=== PATIENT | male | born 1960 | race African-American/Black ===

== ENCOUNTER 2017-04-14 10:13 | Observation (INO) | payer OTHER, SELFPAY ==
[2017-04-14 11:38] LABS: #Basophils 0.1 thou/uL (0.0-0.2); #Eosinphils 0.3 thou/uL (0.0-0.7); #Lymphocytes 2.3 thou/uL (1.20-3.40); #Monocytes 0.4 thou/uL (0.11-0.59); #Neutrophils 3.1 thou/uL (1.40-6.50); %Basophils 1.3 % (0.0-1.0); %Eosinophils 4.2 % (0.0-10.0); %Lymphocytes 37.6 % (21.0-51.0); %Monocytes 6.2 % (0.0-10.0); Hematocrit 45.1 % (42.0-52.0); Mean Platelet Volume 7.6 fL (7.4-10.4); White Blood Cell (WBC) Count 6.2 thou/uL (4.8-10.8)
[2017-04-14] MEDS ORDERED: Nitroglycerin 2% Ointment 1 INCH/1 GM Packet ONE (11:44)
[2017-04-14 12:01] LABS: ALT (SGPT) 56 U/L (8-55); AST (SGOT) 41 U/L (5-34); Alkaline Phosphatase 97 U/L (40-150); Anion Gap 15 mmol/L (10-20); BUN (Urea Nitrogen) 11 mg/dL (8.4-25.7); Bilirubin, Total 0.7 mg/dL (0.2-1.2); Calc. Creatinine Clearance 0 mL/min (70-130); Calcium 9.3 mg/dL (7.8-10.44); Carbon Dioxide 22 mmol/L (22-29); Chloride 108 mmol/L (98-107); Estimated GFR-MDRD 87; Globulin 3.6 g/dL (2.4-3.5); Protein, Total 7.7 g/dL (6.0-8.3)
--- NOTE | 2017-04-14 12:02 | RAD ---
UPRIGHT PORTABLE CHEST 1 VIEW: Date: HISTORY: 56-year-old male with hypertension and nausea. COMPARISON: 05/18/10. FINDINGS: Monitor leads overlie the chest. Heart size is within normal limits. Lungs are clear. IMPRESSION: Stable appearing chest. No acute intrathoracic disease. POS: [facility]
[2017-04-14] MEDS ORDERED: Ondansetron HCl/PF 4 MG/2 ML Vial IVP PRN (12:47)
[2017-04-14] MEDS ORDERED: HumaLOG 300 UNITS/3 ML VIAL SC PRN (12:47)
[2017-04-14] MEDS ORDERED: Acetaminophen 325 MG TAB PO PRN ×2 (12:47→16:07)
[2017-04-14] MEDS ORDERED: Zolpidem Tartrate 5 MG TAB PO PRN (12:47)
[2017-04-14] MEDS ORDERED: Dextrose 5% in Water 1,000 ML IV PRN (12:47)
[2017-04-14] MEDS ORDERED: HYDROcodone/Acetaminophen 7.5/325 mg Tablet PO PRN (12:47)
[2017-04-14] MEDS ORDERED: Dextrose 50% Abboject 50 ML SYRINGE SLOW IVP PRN (12:47)
[2017-04-14] MEDS ORDERED: Labetalol HCl 100 MG/20 ML VIAL SLOW IVP PRN (12:48)
--- NOTE | 2017-04-14 13:33 | HP ---
PRIMARY CARE PROVIDER: Isidro Metcalf M.D. The patient referred to the [facility] by [facility] for possibl e chest pain variant. The patient became lightheaded this morning, nauseated with no emesis. He di d have sweat. He had no pressure, chest pain, no tightness in his chest. No shortness of breath, n o nausea. PAST MEDICAL HISTORY: Pertinent for hypertension, diabetes mellitus type 2, and dyslipidemia for 4- 5 years. MEDICATIONS: Currently on lisinopril 40 mg a day, metformin 500 mg a day, metoprolol 25 mg twice a day, Lipitor 40 mg a day, hydralazine 50 mg a day, and aspirin 325 mg a day. ALLERGIES: PENICILLIN. PAST SURGICAL HISTORY: He had some form of benign tumor removed from his left neck years ago. FAMILY HISTORY: One brother younger than he has of an enlarged heart and hypertension. His fa ther , he had diabetes. His mother has coronary artery disease and is alive. SOCIAL HISTORY: , at bedside. Surrogate decision maker. FULL CODE status. No tobacco , no alcohol or illicit drugs. REVIEW OF SYSTEMS: GENERAL: In general, in addition to his lightheadedness this morning, he has yan d some pressure in his hand. All of his symptoms have resolved at this time. He has had no fever o r chills. He did have sweat this morning. EYES: No double vision, blurred vision, flashing lights . EAR, NOSE, AND THROAT: No ear pain or drainage. No nasal bleeding. No trouble swallowing, no p ain in his mouth. CARDIAC: No chest pain, orthopnea or paroxysmal nocturnal dyspnea. RESPIRATIONS : No cough, wheezing or asthma. GASTROINTESTINAL: No nausea, vomiting, abdominal pain, diarrhea, constipation or melena. GENITOURINARY: No hematuria, dysuria or nocturia. NEUROLOGICAL: No strok es, seizures or focal weakness. He was in the hospital with what was considered a possible TIA year and a half ago. There were no positive findings. PSYCHIATRIC: No anxiety or depression. SKIN: No bruises, bleeding or rash. HEME/LYMPH: No tender or swollen lymph nodes in axilla, inguinal or cervical area. PHYSICAL EXAMINATION: VITAL SIGNS: In the emergency room, he was found to have elevated blood pressure ranging from 189-2 05 systolic and 79-107 diastolic, pulse was 60-65, respirations 18, and room air sat 97%. HEENT: Examination of his head, eyes, ears, nose, and throat reveal pupils equal and round. Extrao cular movements are intact. Sclerae white. Tympanic membranes clear. Nose clear. Oral mucous mem branes are wet. Dental hygiene is good. NECK: Supple, without jugular venous distention, adenopathy or thyromegaly. CHEST: Clear to auscultation and percussion. HEART: Had a regular rate and rhythm. First and second heart sounds are clear. There are no appre ciated murmurs or gallops. ABDOMEN: Soft, bowel sounds are normal. There is no hepatosplenomegaly, no mass, no rebound, no br uits. EXTREMITIES: Reveal no cyanosis, clubbing or edema. SKIN: Warm and dry without bruises or rash. HEME/LYMPH: Reveal no tender or swollen lymph nodes in axilla, inguinal or cervical area. Deep ten don reflexes were symmetric. Moved all extremities. Cranial nerves II-XII are intact. IMAGIN. EKG, regular sinus rhythm with diffuse ST abnormality, nonspecific, reviewed by me. 2. Chest x-ray, no cardiomegaly, CHF or infiltrate, reviewed by me. LABORATORY DATA: CBC is normal. White count 6.2, hemoglobin 14.2, platelet count and 201,000. Com p metabolic profile was normal except for a chloride minimally elevated at 108, blood sugar 181, AST 41, ALT 56. First set of cardiac enzymes are normal. ADMITTING DIAGNOSES: 1. Chest pain variant with abnormal electrocardiogram. 2. Hypertension, uncontrolled. 3. Diabetes mellitus type 2. 4. Dyslipidemia. PLAN: 1. Aspirin. Increase metoprolol from 25 to 50 b.i.d. 2. Increase Apresoline from 50 a day to 50 t.i.d. 3. Continue lisinopril 40 a day. Continue statins. Repeat cardiac enzymes x2. If normal, then ex ercise Cardiolite stress test.
[2017-04-14 15:37] LABS: Troponin I 0.015 ng/mL (< 0.028)
[2017-04-14 16:01] VITALS: BMI 38.9
[2017-04-14] MEDS ORDERED: Aspirin 325 mg Enteric Coated Tablet PO SCH (16:15)
[2017-04-14 18:49] LABS: Troponin I 0.011 ng/mL (< 0.028)
[2017-04-14] MEDS: Metoprolol Tartrate 50 MG TAB PO SCH (20:12)
[2017-04-14] MEDS ORDERED: Metoprolol Tartrate 25 MG TAB PO SCH (21:00)
[2017-04-14] MEDS ORDERED: Atorvastatin Calcium 40 MG TAB PO SCH (21:00)
[2017-04-15 05:06] LABS: Anion Gap 11 mmol/L (10-20); BUN (Urea Nitrogen) 12 mg/dL (8.4-25.7); Calc. Creatinine Clearance 183 mL/min (70-130); Calcium 8.9 mg/dL (7.8-10.44); Carbon Dioxide 25 mmol/L (22-29); Chloride 107 mmol/L (98-107); Estimated GFR-MDRD Greater than 90
[2017-04-15] MEDS ORDERED: Aspirin 325 MG TAB PO SCH (09:00)
[2017-04-15] MEDS ORDERED: Lisinopril 20 MG TAB PO SCH (09:00)
[2017-04-15] MEDS: Metoprolol Tartrate 50 MG TAB PO SCH (15:08)
[2017-04-15 15:23] VITALS: TEMP 97.6
--- NOTE | 2017-04-15 15:47 | NM ---
CARDIAC SPECT 04/15/17 HISTORY: 56-year-old male with chest pain, hypertension, diabetes, hyperlipidemia. TECHNIQUE: A myocardial perfusion scan was performed using the single isotope one day protocol with technetium 99m Sestamibi. 10 millicuries was injected intravenously for the rest exam followed by 27 millicurie s for the stress study. Pharmacologic stress with Lexiscan was monitored and interpreted by Dr. Jose Eduardo stevens. FINDINGS: Homogeneous tracer distribution is seen in the myocardial segments on stress and rest images without fixed or reversible defects. GATED SPECT LVEF: 63%. WALL MOTION EXAM: Normal. IMPRESSION: Normal myocardial perfusion scan. POS: [facility]
[2017-04-15 15:59] VITALS: BP 156/70
--- NOTE | 2017-04-15 17:27 | DIS ---
DATE OF ADMISSION: 04/14/2017 DATE OF DISCHARGE: 04/15/2017 DISPOSITION: Discharged home. [facility] FINAL DIAGNOSES: 1. Atypical chest pain, noncardiac. 2. Diabetes mellitus type 2, uncontrolled. 3. Hypertension, uncontrolled. 4. Dyslipidemia. DISCHARGE MEDICATIONS: Lisinopril 40 mg a day, Lipitor 40 mg a day, aspirin 325 mg a day, metformin 500 mg a day, hydralazine 50 mg 3 times a day, and metoprolol 50 mg twice a day. ALLERGIES: Allergic to PENICILLIN. PENDING AT THE TIME OF DISCHARGE: Nothing. CODE STATUS: FULL. HOSPITAL COURSE: The patient admitted to the emergency room with vague symptoms, a substantially ab normal electrocardiogram. His laboratory; normal CBC, comp metabolic profile revealing only blood s ugar of 181, follow up 200, 159, and 149. AST 41, ALT 56, bilirubin 0.7. Cardiac enzymes normal x3 . EKG showed regular sinus rhythm with diffuse nonspecific ST-T abnormality. Chest x-ray was unrev ealing. Nuclear medicine cardiac stress test was done, which revealed homogeneous uptake of tracer. No evidence of fixed or reversible defect, 63% LVEF by calculation. Today, the patient's blood pr essure is 156/70, pulse 71, respirations 18. He is alert and oriented. Cardiorespiratory exam is u nremarkable. He feels well. He is being discharged for followup at [facility] in 7 days. CONSULTATIONS: None. PROCEDURES: None.
== END 2017-04-15 16:41 | disposition home or self-care (01) ==
LOC: ERS 10:13 → 2SW 12:36
PROVIDERS: ADMIT Internal Medicine; ATTEND Internal Medicine
DX: R07.89 Other chest pain (principal); E11.65 Type 2 diabetes mellitus with hyperglycemia; I10 Essential (primary) hypertension; E78.5 Hyperlipidemia, unspecified; Z79.82 Long term (current) use of aspirin; Z79.84 Long term (current) use of oral hypoglycemic drugs; Z79.899 Other long term (current) drug therapy; Z88.0 Allergy status to penicillin
CPT/HCPCS: 36415; 36416; 71010; 78452; 80048; 80053; 82553; 84484; 85025; 93005; 93017; 94760; A9500; G0378; J0153

== ENCOUNTER 2017-04-22 21:31 | Emergency (ER) | payer SELFPAY ==
--- NOTE | 2017-04-22 22:21 | RAD ---
PORTABLE AP CHEST X-RAY: 04/22/17 HISTORY: Chest pain, dizziness, nausea. COMPARISON: 04/14/17. The cardiac silhouette and pulmonary vasculature are within normal limits. The lungs remain clear. T here has been no interval change from prior study. IMPRESSION: No acute cardiopulmonary process. POS: [facility]
[2017-04-22 22:48] LABS: #Basophils 0.1 thou/uL (0.0-0.2); #Eosinphils 0.3 thou/uL (0.0-0.7); #Lymphocytes 2.9 thou/uL (1.20-3.40); #Monocytes 0.5 thou/uL (0.11-0.59); %Basophils 0.6 % (0.0-1.0); %Eosinophils 3.9 % (0.0-10.0); %Lymphocytes 32.8 % (21.0-51.0); %Monocytes 5.8 % (0.0-10.0); Hematocrit 41.7 % (42.0-52.0); Mean Platelet Volume 7.2 fL (7.4-10.4); Red Blood Cell (RBC) Count 4.63 mill/uL (4.70-6.10); White Blood Cell (WBC) Count 8.8 thou/uL (4.8-10.8)
[2017-04-22] MEDS ORDERED: Ondansetron HCl/PF 4 MG/2 ML Vial ONE (22:59)
[2017-04-22] MEDS ORDERED: Aspirin 325 MG TAB ONE (22:59)
[2017-04-22 23:13] LABS: ALT (SGPT) 32 U/L (8-55); AST (SGOT) 24 U/L (5-34); Alkaline Phosphatase 85 U/L (40-150); Anion Gap 14 mmol/L (10-20); BUN (Urea Nitrogen) 12 mg/dL (8.4-25.7); Bilirubin, Total 0.5 mg/dL (0.2-1.2); CK (CPK) 611 U/L (30-200); Calc. Creatinine Clearance 0 mL/min (70-130); Calcium 8.8 mg/dL (7.8-10.44); Carbon Dioxide 21 mmol/L (22-29); Chloride 107 mmol/L (98-107); Estimated GFR-MDRD Greater than 90; Globulin 3.3 g/dL (2.4-3.5); Protein, Total 7.2 g/dL (6.0-8.3)
[2017-04-22 23:18] LABS: Troponin I Less than 0.010 ng/mL (< 0.028)
[2017-04-23] MEDS ORDERED: cloNIDine HCl 0.1 MG TAB ONE ×2 (00:27→00:50)
[2017-04-23] MEDS ORDERED: Nitroglycerin 0.4 MG TAB (25 Tab Bottle) ONE (00:27)
[2017-04-23] MEDS ORDERED: Metoclopramide HCl 10 MG/2 ML VIAL ONE (00:31)
[2017-04-23] MEDS ORDERED: Ketorolac Tromethamine 30 MG/ML VIAL ONE (00:31)
== END 2017-04-23 02:58 | disposition home or self-care (01) ==
LOC: ERS 21:31
DX: E86.0 Dehydration (principal); E11.9 Type 2 diabetes mellitus without complications; E78.5 Hyperlipidemia, unspecified; I10 Essential (primary) hypertension; J45.909 Unspecified asthma, uncomplicated; Z79.82 Long term (current) use of aspirin; Z79.84 Long term (current) use of oral hypoglycemic drugs; Z79.899 Other long term (current) drug therapy
CPT/HCPCS: 71010; 80053; 82553; 84484; 85025; 93005; 96361; 96374; 96375; J0360; J1885; J2405; J2765

== ENCOUNTER 2017-05-04 01:42 | Observation (INO) | payer SELFPAY ==
[2017-05-04] MEDS ORDERED: Aspirin 325 MG TAB ONE (01:49)
[2017-05-04 02:37] LABS: #Basophils 0.1 thou/uL (0.0-0.2); #Eosinphils 0.4 thou/uL (0.0-0.7); #Lymphocytes 3.5 thou/uL (1.20-3.40); #Monocytes 0.6 thou/uL (0.11-0.59); #Neutrophils 4.1 thou/uL (1.40-6.50); %Basophils 1.4 % (0.0-1.0); %Eosinophils 4.4 % (0.0-10.0); %Lymphocytes 40.2 % (21.0-51.0); %Monocytes 7.4 % (0.0-10.0); Hematocrit 42.5 % (42.0-52.0); Mean Platelet Volume 7.5 fL (7.4-10.4); Red Blood Cell (RBC) Count 4.71 mill/uL (4.70-6.10); White Blood Cell (WBC) Count 8.7 thou/uL (4.8-10.8)
[2017-05-04 02:56] LABS: ALT (SGPT) 37 U/L (8-55); AST (SGOT) 25 U/L (5-34); Alkaline Phosphatase 96 U/L (40-150); Anion Gap 11 mmol/L (10-20); BUN (Urea Nitrogen) 11 mg/dL (8.4-25.7); Bilirubin, Total 0.5 mg/dL (0.2-1.2); CK (CPK) 455 U/L (30-200); Calc. Creatinine Clearance 0 mL/min (70-130); Calcium 9.3 mg/dL (7.8-10.44); Carbon Dioxide 25 mmol/L (22-29); Chloride 107 mmol/L (98-107); Estimated GFR-MDRD Greater than 90; Globulin 3.3 g/dL (2.4-3.5); Lipase 41 U/L (8-78); Protein, Total 7.2 g/dL (6.0-8.3)
[2017-05-04 03:00] LABS: Troponin I 0.016 ng/mL (< 0.028)
[2017-05-04] MEDS ORDERED: Nitroglycerin 2% Ointment 1 INCH/1 GM Packet ONE (03:24)
[2017-05-04] MEDS ORDERED: Ondansetron ODT 4 MG TAB SL PRN (05:48)
[2017-05-04] MEDS ORDERED: Ondansetron HCl/PF 4 MG/2 ML Vial IVP PRN ×2 (05:48→08:00)
[2017-05-04 05:53] LABS: Troponin I 0.026 ng/mL (< 0.028)
[2017-05-04] MEDS ORDERED: Sodium Chloride 0.9% 1,000 ML IV SCH (06:00)
[2017-05-04] MEDS ORDERED: Nitroglycerin 2% Ointment 1 INCH/1 GM Packet TOP SCH ×2 (06:00→09:00)
[2017-05-04 06:20] VITALS: BMI 38.3
[2017-05-04] MEDS ORDERED: Zolpidem Tartrate 5 MG TAB PO PRN (08:00)
--- NOTE | 2017-05-04 08:31 | HP ---
PRIMARY CARE PROVIDER: Isidro Metcalf M.D. Referred to the [facility] Service for high blood pressure and chest pain. HISTORY OF PRESENT ILLNESS: The patient was evaluated for chest pain with normal stress test on , presents with his blood pressure being up. He had a left throbbing chest pain that lasted a couple of seconds. He awoke with it and states his blood pressure goes up and down. He had no sh ortness of breath, no sweats, no nausea. He presented at the hospital. I discussed with him the is danya of the normal stress test, atypical chest pain and his blood pressure, it demonstrated poor insi ght into the problem and what was appropriate for outpatient and inpatient work. PAST MEDICAL HISTORY: Hypertension, diabetes mellitus type 2, dyslipidemia, normal stress test 03/27. MEDICATIONS: Metformin 500 mg a day, lisinopril 40 mg a day, aspirin 325 mg a day, hydralazine 50 m g 3 times a day, metoprolol either 50 or 100 mg twice a day, it is not sure, Lipitor 40 mg a day. ALLERGIES: Allergic to PENICILLINS. PAST SURGICAL HISTORY: Benign tumor removed from his left neck years ago. FAMILY HISTORY: One younger brother has of an enlarged heart and hypertension. Father is dece ased, had diabetes. Mother had coronary artery disease, alive. SOCIAL HISTORY: , FULL CODE. No tobacco, no alcohol or illicit drugs. REVIEW OF SYSTEMS: GENERAL: He has a headache when his blood pressure goes up. No dizziness and n o fainting. EYES: No double vision, blurred vision, flashing lights. EAR, NOSE, AND THROAT: No e ar pain or drainage. No nasal bleeding. No trouble swallowing. CARDIAC: See present illness. No orthopnea or paroxysmal nocturnal dyspnea. RESPIRATORY: He has occasional cough. No shortness of breath or wheezing. GASTROINTESTINAL: No nausea, vomiting, diarrhea or constipation. GENITOURINA RY: No hematuria, dysuria or nocturia. MUSCULOSKELETAL: No pain or swelling in his arms or legs. NEUROLOGIC: He says he had a mini stroke in the past. No residual. PSYCHIATRIC: No anxiety or d epression. SKIN: No bruising, bleeding or rash. HEME/LYMPH: No tender or swollen lymph nodes. PHYSICAL EXAMINATION: VITAL SIGNS: Blood pressure when I examined him 124/59, pulse 67, and respirations 18. HEENT: Examination of his head, eyes, ears, nose, and throat reveal pupils equal, round, and reacti ve to light. Extraocular movements are intact. Sclerae white. Tympanic membranes clear. Nose jaison ar. Oral mucous membranes are wet. Dental hygiene is good. NECK: Supple, without jugular venous distention, adenopathy or thyromegaly. CHEST: Clear to auscultation and percussion. HEART: Had regular rate and rhythm. First and second heart sounds are clear. There are no murmurs or gallops. ABDOMEN: Soft, bowel sounds are normal. There is no hepatosplenomegaly, no mass, no rebound, no br uits. EXTREMITIES: Reveal no cyanosis, clubbing or edema. SKIN: Warm and dry without bruises or rash. HEME/LYMPH: No tender or swollen lymph nodes in the axilla, inguinal or cervical area. PULSES: Carotid, radial, femoral, and dorsalis pedis pulses intact. NEUROLOGICAL: Cranial nerves II-XII are intact. Deep tendon reflexes symmetric. IMAGING: Regular sinus rhythm, no acute ST-T abnormality. Chest x-ray, no cardiomegaly, CHF or inf iltrate, reviewed by me. LABORATORY DATA: Comp metabolic profile, CK elevated at 455. Cardiac enzymes were normal x2. CBC is normal. ADMITTING DIAGNOSES: 1. Atypical chest pain. 2. Hypertension, currently controlled. 3. Diabetes mellitus type. 4. Dyslipidemia. We will repeat a third troponin. We will monitor his blood pressure during the d ay with no p.r.n. medicines. Discuss again with him later.
--- NOTE | 2017-05-04 08:33 | RAD ---
RADIOGRAPH CHEST 1 VIEW: HISTORY: 56-year-old male with acute chest pain and subjective hypertension. FINDINGS: There are no air space densities, pulmonary edema, pneumothorax, or cardiomegaly. The lateral costo phrenic angles are sharp. IMPRESSION: No acute cardiopulmonary findings. kasey [] POS: [facility]
[2017-05-04 08:44] LABS: Troponin I Less than 0.010 ng/mL (< 0.028)
[2017-05-04] MEDS ORDERED: Aspirin 325 mg Enteric Coated Tablet PO SCH ×2 (09:00)
[2017-05-04] MEDS ORDERED: Aspirin 325 MG TAB PO SCH (09:00)
[2017-05-04] MEDS ORDERED: LISINOPRIL PO SCH (09:00)
[2017-05-04] MEDS ORDERED: Lisinopril 20 MG TAB PO SCH (09:00)
[2017-05-04] MEDS ORDERED: Metoprolol Tartrate 100 MG TAB PO SCH (09:00)
[2017-05-04] MEDS: Acetaminophen 325 MG TAB PO PRN ×2 (09:48→14:05)
[2017-05-04 16:40] VITALS: BP 163/79; TEMP 97.9
--- NOTE | 2017-05-04 18:22 | DIS ---
DATE OF ADMISSION: 05/04/2017 DATE OF DISCHARGE: 05/04/2017 PRIMARY CARE PROVIDER: Isidro Metcalf MD DISCHARGE DISPOSITION: To home. FINAL DIAGNOSES: 1. Atypical chest pain lasting seconds. 2. Hypertension. 3. Diabetes mellitus type 2. 4. Dyslipidemia. DISCHARGE MEDICATIONS: Same as his home medicines, lisinopril 40 mg a day, metformin 500 mg a day, aspirin 325 mg a day, Apresoline 50 mg 3 times a day, metoprolol 100 mg twice a day. ALLERGIES: To PENICILLIN. PENDING AT TIME OF DISCHARGE: Nothing. HOSPITAL COURSE: Patient was admitted to the Emergency Department with a throbbing 2-second chest p ain, came to the ER, his blood pressure was noted to be up, but came down rapidly. EKG was unreveal ing. LABORATORY: CBC normal. Comp metabolic profile normal except CK of 455. Cardiac enzymes normal x2 . Blood sugar 122. Patient was monitored during the day. Blood pressure readings were 124/59, 174 /83, 168/76, 163/79. The situation was discussed with him. He is comfortable with being discharged . He needs to follow up with his primary care doctor in 1 week. I had a long discussion with this gentleman about vague chest pains. He had a stress test on 04/15/2017 that was normal for vague sym ptomatology. The patient shows a lack of insight into the situation. CONSULTATIONS: None. PROCEDURES: None.
[2017-05-04] MEDS ORDERED: Atorvastatin Calcium 40 MG TAB PO SCH (21:00)
[2017-05-05] MEDS ORDERED: FLU VACC QS2017-18 36 mo. & older 0.5 ML SYRINGE IM ONE (09:00)
== END 2017-05-04 17:33 | disposition home or self-care (01) ==
LOC: ERS 01:42 → 2SE 03:12
PROVIDERS: ADMIT Internal Medicine; ATTEND Internal Medicine
DX: R07.89 Other chest pain (principal); I10 Essential (primary) hypertension; E11.9 Type 2 diabetes mellitus without complications; E78.5 Hyperlipidemia, unspecified; Z79.84 Long term (current) use of oral hypoglycemic drugs; Z79.82 Long term (current) use of aspirin; Z79.899 Other long term (current) drug therapy; Z88.0 Allergy status to penicillin; Z98.890 Other specified postprocedural states; Z83.3 Family history of diabetes mellitus; Z82.49 Family history of ischemic heart disease and other diseases of the circulatory system
CPT/HCPCS: 36415; 71010; 80053; 82550; 82553; 83690; 83880; 84484; 85025; 93005; 96361; 96374; G0378; J0360

== ENCOUNTER 2017-08-18 04:30 | Emergency (ER) | payer SELFPAY ==
[2017-08-18] MEDS ORDERED: Lisinopril 10 MG TAB ONE (05:03)
[2017-08-18] MEDS ORDERED: hydrALAZINE 25 MG TAB ONE (05:03)
[2017-08-18] MEDS ORDERED: cloNIDine 0.1 MG TAB ONE (05:03)
[2017-08-18] MEDS ORDERED: Metoprolol Tartrate 50 MG TAB ONE (05:03)
[2017-08-18 05:04] LABS: #Basophils 0.1 thou/uL (0.0-0.2); #Eosinphils 0.3 thou/uL (0.0-0.7); #Lymphocytes 4.2 thou/uL (1.20-3.40); #Monocytes 0.6 thou/uL (0.11-0.59); #Neutrophils 4.3 thou/uL (1.40-6.50); %Eosinophils 3.3 % (0.0-10.0); %Lymphocytes 44.1 % (21.0-51.0); %Monocytes 6.3 % (0.0-10.0); %Neutrophils 45.3 % (42.0-75.0); Hemoglobin 14.4 g/dL (14.0-18.0); Mean Corpuscular HGB CONC 32.7 g/dL (32.0-36.0); Mean Corpuscular Hemoglobin 28.7 pg (27.0-31.0); Mean Corpuscular Volume 87.7 fl (80.0-94.0); Mean Platelet Volume 7.7 fL (7.4-10.4); Platelet Count 209 thou/uL (130-400); RBC Distribution Width 12.6 % (11.5-14.5); Red Blood Cell (RBC) Count 5.03 mill/uL (4.70-6.10); White Blood Cell (WBC) Count 9.4 thou/uL (4.8-10.8)
[2017-08-18 05:11] LABS: INR-International Normal Ratio 1.1; PTT 29.4 SEC (22.9-36.1); Prothrombin Time 14.2 SEC (12.0-14.7)
[2017-08-18 05:24] LABS: ALT (SGPT) 31 U/L (8-55); AST (SGOT) 20 U/L (5-34); Albumin 4.2 g/dL (3.5-5.0); Alkaline Phosphatase 73 U/L (40-150); Anion Gap 16 mmol/L (10-20); BUN (Urea Nitrogen) 12 mg/dL (8.4-25.7); Bilirubin, Total 0.7 mg/dL (0.2-1.2); CKMB 1.9 ng/mL (0-6.6); Calc. Creatinine Clearance 0 mL/min (70-130); Calcium 9.4 mg/dL (7.8-10.44); Carbon Dioxide 21 mmol/L (22-29); Chloride 104 mmol/L (98-107); Estimated GFR-MDRD Greater than 90; Globulin 3.3 g/dL (2.4-3.5); Glucose 134 mg/dL (70-105); Potassium 4.5 mmol/L (3.5-5.1); Protein, Total 7.5 g/dL (6.0-8.3); Sodium 136 mmol/L (136-145); Troponin I Less than 0.010 ng/mL (< 0.028)
[2017-08-18 05:58] LABS: Amphetamine Not Detected (NotDetected); Barbiturates Screen Not Detected (NotDetected); Benzodiazepine Screen Not Detected (NotDetected); Cocaine Metabolite Screen Not Detected (NotDetected); Medtox Control Line Valid? VALID (VALID); Medtox Reader # READER 1; Methadone Not Detected (NotDetected); Methamphetamine Not Detected (NotDetected); Opiate Screen Not Detected (NotDetected); Oxycodone Screen Not Detected (NotDetected); Phencyclidine (PCP) Not Detected (NotDetected); THC/Cannabinoid Screen Not Detected (NotDetected); Tricyclic Screen Not Detected (NotDetected)
[2017-08-18] MEDS ORDERED: hydrALAZINE 20 MG/ML VIAL ONE (06:02)
[2017-08-18] MEDS ORDERED: Acetaminophen 325 MG TAB ONE (06:02)
--- NOTE | 2017-08-18 07:49 | RAD ---
SINGLE VIEW OF THE CHEST: COMPARISON: 05/04/17. HISTORY: Dyspnea and hypertension. FINDINGS: Single view of the chest shows a normal sized cardiomediastinal silhouette. There is no evidence of c onsolidation, mass, or pleural effusion. The bones are unremarkable. IMPRESSION: No evidence of acute cardiopulmonary disease. POS: [facility]
--- NOTE | 2017-08-21 18:13 | EKG ---
Test Reason : Blood Pressure : / mmHG Vent. Rate : 066 BPM Atrial Rate : 066 BPM P-R Int : 184 ms QRS Dur : 100 ms QT Int : 422 ms P-R-T Axes : 041 -02 140 degrees QTc Int : 442 ms Normal sinus rhythm T wave abnormality, consider lateral ischemia Inversion T waves V4, V5, V6, I Abnormal ECG Confirmed by GREG RONQUILLO D.O. ([id number]), editor house organ SANTHOSH HOBBS ([id number]) on 08/21/2017 6:12:23 PM Referred By: Confirmed By:GREG RONQUILLO D.O.
== END 2017-08-18 06:56 | disposition home or self-care (01) ==
LOC: ERS 04:30
DX: I16.0 Hypertensive urgency (principal); E11.9 Type 2 diabetes mellitus without complications; E78.5 Hyperlipidemia, unspecified; I10 Essential (primary) hypertension; J45.909 Unspecified asthma, uncomplicated; Z79.899 Other long term (current) drug therapy; Z79.82 Long term (current) use of aspirin
CPT/HCPCS: 71045; 80053; 80306; 82553; 84484; 85025; 85610; 85730; 93005; 96374; J0360

== ENCOUNTER 2017-08-19 12:15 | Observation (INO) | payer SELFPAY ==
[2017-08-19] MEDS ORDERED: Nitroglycerin 0.4 MG TAB (25 Tab Bottle) ONE (12:48)
[2017-08-19] MEDS ORDERED: Ondansetron HCl/PF 4 MG/2 ML Vial ONE (13:03)
[2017-08-19 13:14] LABS: #Basophils 0.1 thou/uL (0.0-0.2); #Eosinphils 0.2 thou/uL (0.0-0.7); #Lymphocytes 2.6 thou/uL (1.20-3.40); #Monocytes 0.5 thou/uL (0.11-0.59); #Neutrophils 4.4 thou/uL (1.40-6.50); %Eosinophils 2.1 % (0.0-10.0); %Lymphocytes 34.1 % (21.0-51.0); %Monocytes 6.4 % (0.0-10.0); %Neutrophils 56.4 % (42.0-75.0); Hemoglobin 14.6 g/dL (14.0-18.0); Mean Corpuscular HGB CONC 33.3 g/dL (32.0-36.0); Mean Corpuscular Hemoglobin 29.3 pg (27.0-31.0); Mean Corpuscular Volume 87.9 fl (80.0-94.0); Mean Platelet Volume 7.8 fL (7.4-10.4); Platelet Count 248 thou/uL (130-400); RBC Distribution Width 12.7 % (11.5-14.5); Red Blood Cell (RBC) Count 4.98 mill/uL (4.70-6.10); White Blood Cell (WBC) Count 7.7 thou/uL (4.8-10.8)
--- NOTE | 2017-08-19 13:21 | RAD ---
AP VIEWS OF CHEST: INDICATION: Chest pain and left arm pain. COMPARISON: Prior exam of 08/18/17. FINDINGS: Lungs are clear. Cardiomediastinal silhouette is within normal limits. No acute osseous abnormality is evident. IMPRESSION: No acute cardiopulmonary abnormality. POS: [facility]
[2017-08-19 13:37] LABS: ALT (SGPT) 34 U/L (8-55); AST (SGOT) 24 U/L (5-34); Albumin 4.3 g/dL (3.5-5.0); Alkaline Phosphatase 75 U/L (40-150); Anion Gap 11 mmol/L (10-20); BUN (Urea Nitrogen) 11 mg/dL (8.4-25.7); Bilirubin, Total 0.8 mg/dL (0.2-1.2); CK (CPK) 309 U/L (30-200); Calc. Creatinine Clearance 0 mL/min (70-130); Calcium 9.4 mg/dL (7.8-10.44); Carbon Dioxide 24 mmol/L (22-29); Chloride 102 mmol/L (98-107); Estimated GFR-MDRD 90; Globulin 3.4 g/dL (2.4-3.5); Glucose 144 mg/dL (70-105); Lipase 49 U/L (8-78); Potassium 4.2 mmol/L (3.5-5.1); Protein, Total 7.7 g/dL (6.0-8.3); Sodium 133 mmol/L (136-145)
[2017-08-19 13:41] LABS: CKMB 1.6 ng/mL (0-6.6); Troponin I Less than 0.010 ng/mL (< 0.028)
[2017-08-19 16:28] LABS: Troponin I 0.015 ng/mL (< 0.028)
[2017-08-19] MEDS ORDERED: Acetaminophen 325 MG TAB PO PRN (16:33)
[2017-08-19] MEDS ORDERED: Ondansetron HCl/PF 4 MG/2 ML Vial IVP PRN ×2 (16:33→18:53)
[2017-08-19] MEDS ORDERED: Ondansetron ODT 4 MG TAB SL PRN (16:33)
[2017-08-19 17:03] VITALS: BMI 38.6
[2017-08-19] MEDS ORDERED: FLU VACC QS2017-18 36 mo. & older 0.5 ML SYRINGE IM ONE (17:45)
[2017-08-19] MEDS ORDERED: hydrALAZINE 20 MG/ML VIAL SLOW IVP PRN (18:53)
[2017-08-19] MEDS ORDERED: Acetaminophen 500 MG TAB PO PRN (18:53)
[2017-08-19] MEDS ORDERED: Ondansetron ODT 4 MG TAB PO PRN (18:53)
[2017-08-19] MEDS ORDERED: Dextrose 5% in Water 1,000 ML IV PRN (18:53)
[2017-08-19] MEDS ORDERED: HumaLOG 300 UNITS/3 ML VIAL SC PRN ×2 (18:53)
[2017-08-19] MEDS ORDERED: Dextrose 50% Abboject 50 ML SYRINGE SLOW IVP PRN (18:53)
[2017-08-19] MEDS ORDERED: cloNIDine 0.1 MG TAB PO PRN (18:53)
[2017-08-19] MEDS ORDERED: Nitroglycerin 0.4 MG TAB (25 Tab Bottle) SL PRN (18:53)
[2017-08-19] MEDS ORDERED: Hydrochlorothiazide 25 MG TAB PO SCH (19:30)
[2017-08-19 19:48] LABS: Troponin I 0.013 ng/mL (< 0.028)
[2017-08-19] MEDS: hydrALAZINE 25 MG TAB PO SCH (20:25)
[2017-08-19] MEDS: Famotidine 20 MG TAB PO SCH (20:26)
[2017-08-19] MEDS: Metoprolol Tartrate 50 MG TAB PO SCH (20:26)
[2017-08-19] MEDS: cloNIDine 0.1 MG TAB PO SCH (20:26)
[2017-08-19] MEDS ORDERED: Atorvastatin Calcium 40 MG TAB PO SCH (21:00)
[2017-08-19] MEDS ORDERED: Non-Formulary Item 1 EACH (Hydralazine Hcl [Hydralazine Hcl] 50 MG) PO SCH (21:00)
--- NOTE | 2017-08-20 00:15 | HP ---
DATE OF ADMISSION: 08/19/2017 PRIMARY CARE PHYSICIAN: Dr. Metcalf at [facility] in [place], [place]. CHIEF COMPLAINT: High blood pressure and chest pain. HISTORY OF PRESENT ILLNESS: This is a 57-year-old -[place] male, who presents to [facility] complaining of fluctuating blood pressure over the last 8-9 months despite com pliance with four different blood pressure medications including clonidine, hydralazine, lisinopril, and metoprolol. The patient states he gets erratic numbers on his home blood pressure monitor and yan s noted associated chest pressure, headaches and blood pressure that has been difficult to control. The patient denies any dietary indiscretion and states he is attempting to eat a healthier diet with less salt. The patient is unsure of the exact amount of salt he is exposed to any given day. The pa tamica also admits to drinking multiple cups of coffee each day and is unable to quantitate the exact amount. The patient denies any other change to his chronic medication regimen, travel history, expos ure, fever, chills or cough. The patient denied any specific lower extremity swelling or orthopnea. The patient states he has been attempting to lose some weight, but states he is only lost approximat richar 5 pounds over the last several months. The patient admits to some fatigue and occasional chest p ain. The patient denied any unilateral weakness, left arm or jaw discomfort. The patient states he takes his blood pressure various times through the day and it is consistently high. The patient also admits to history of diabetes, diagnosed approximately 3-4 years prior to this evaluation and treate d with metformin. The patient states his glucose has been fairly well managed with typical glucose r anging in the 130s. In the emergency room, the patient underwent general evaluation and initially ma naged with sublingual nitroglycerin, IV Zofran and aspirin 324 mg. The patient was referred to the o bservation unit for further evaluation. PAST MEDICAL HISTORY: 1. Hypertension, labile with current treatment. 2. Diabetes mellitus, type 2, times 3-4 years. 3. Hyperlipidemia. 4. Obesity. 5. Childhood asthma. PAST SURGICAL HISTORY: 1. Status post benign tumor removal of the left neck. 2. Status post right hand surgery. CURRENT MEDICATIONS: 1. Lisinopril 40 mg 1 tab p.o. daily. 2. Enteric coated aspirin 325 mg 1 tab p.o. daily. 3. Lipitor 40 mg p.o. at bedtime. 4. Clonidine 0.1 mg p.o. t.i.d. 5. Hydralazine 50 mg p.o. t.i.d. 6. Metformin 500 mg 1 tab p.o. daily. 7. Metoprolol 50 mg p.o. b.i.d. ALLERGIES: PENICILLIN. FAMILY HISTORY: Brother of complications of cardiomyopathy and hypertension. Father with histo ry of diabetes. SOCIAL HISTORY: The [facility]. No current alcohol, tobacco or illici t drug use. REVIEW OF SYSTEMS: The following complete review of systems was negative, unless otherwise mentioned in the HPI or below: Constitutional: Weight loss or gain, ability to conduct usual activities. Skin: Rash, itching. Eyes: Double vision, pain. ENT/Mouth: Nose bleeding, neck stiffness, pain, tenderness. Cardiovascular: Palpitations, dyspnea on exertion, orthopnea. Respiratory: Shortness of breath, wheezing, cough, hemoptysis, fever or night sweats. Gastrointestinal: Poor appetite, abdominal pain, heartburn, nausea, vomiting, constipation, or diarr hea. Genitourinary: Urgency, frequency, dysuria, nocturia. Musculoskeletal: Pain, swelling. Neurologic/Psychiatric: Anxiety, depression. Allergy/Immunologic: Skin rash, bleeding tendency. Otherwise negative except as stated per HPI. PHYSICAL EXAMINATION: VITAL SIGNS: On admission, blood pressure 163/74, pulse 57, respiratory rate 12, temperature 98.1 de grees Fahrenheit, O2 saturation 97% on room air. GENERAL APPEARANCE: This is a 57-year-old -[place] male, alert and oriented x3, pleasant, co nversant, in no acute distress. HEENT: Pupils are equal, round, and reactive to light and accommodation. Extraocular muscles are in tact. No scleral icterus, no conjunctival injection. Nares patent. OP is clear. Teeth in good rep air. NECK: Supple, no cervical adenopathy, no thyromegaly, no carotid bruits, no JVD appreciated. Cervic al spine with full active and passive range of motion. No meningeal signs appreciated. CHEST: Lungs are clear to auscultation bilaterally. CARDIOVASCULAR: S1, S2, without noted murmur. ABDOMEN: Rounded, soft, nontender, nondistended. Bowel sounds are positive in all four quadrants. There is no hepatosplenomegaly, no abdominal bruits, no rebound or guarding appreciated. EXTREMITIES: Warm and dry with fair turgor. No clubbing, cyanosis or asymmetric edema appreciated. Pulses palpable distally at the dorsalis pedis, posterior tibial, and popliteal arteries bilaterally . Capillary refill less than 2 seconds. NEUROLOGIC: Cranial nerves II-XII are grossly intact. No focal or lateralizing signs appreciated. PERTINENT LABORATORY AND X-RAY FINDINGS: Sodium 133, potassium 4.2, chloride 102, CO2 of 24, BUN 11, creatinine 1.04 with estimated GFR of 90, glucose 144, calcium 9.4. LFTs within normal limits. Tot al CK of 309 and troponin negative x2. BNP 27.6, albumin 4.3, lipase 49. CBC showed a white blood c ell count of 7.7, hemoglobin 15, hematocrit 44, platelet count 248 with normal differential. Portabl e chest x-ray dated 08/19/2017 showed no acute cardiopulmonary process. EKG dated 08/19/2017 by my i nterpretation shows a sinus bradycardia with heart rates in the 50s. Normal R-wave progression noted in the precordial leads. Normal axis and complete right bundle branch block pattern. T-wave invers ion noted in leads V4 through V6 and leads I and aVL. ASSESSMENT AND PLAN: 1. Hypertension, labile. We will continue clonidine 0.1 mg p.o. t.i.d. and increase hydralazine to 75 mg t.i.d. Continue lisinopril 40 mg p.o. daily and metoprolol 50 mg p.o. b.i.d. We will add juana tional hydrochlorothiazide 25 mg daily. Continue to monitor serial blood pressure trend. The patien t may need additional titration of his antihypertensive regimen. 2. Question of chest pain. Troponin I negative x2. BNP 27.6. No evidence to suggest acute coronar y syndrome. Review of the medical record shows negative Cardiolite stress testing on 04/15/2017 with calculated ejection fraction of 63%. 3. Diabetes mellitus, type 2. Insulin sliding scale for reflexive coverage. Continue metformin 500 mg p.o. daily. Check A1c level in the a.m. ADA diet. 4. Hyperlipidemia. Continue Lipitor 40 mg p.o. at bedtime. Check fasting lipid profile in the a.m. 5. Prophylaxis. Sequential compression devices while in bed. Pepcid 20 mg p.o. b.i.d. 6. Code status is FULL. Surrogate medical decision maker is the patient's mother.
[2017-08-20 05:06] LABS: Band 1 % (5-11); Eosinophils 2 % (0-10); Hemoglobin 14.5 g/dL (14.0-18.0); Lymphocytes 44 % (21-51); MDiff Complete? YES; Mean Corpuscular HGB CONC 33.3 g/dL (32.0-36.0); Mean Corpuscular Hemoglobin 29.3 pg (27.0-31.0); Mean Platelet Volume 7.6 fL (7.4-10.4); Monocytes 4 % (0-10); Neutrophil 49 % (42-75); PLT Morphology Comment Appears Adequate; Platelet Count 228 thou/uL (130-400); RBC Distribution Width 12.7 % (11.5-14.5); Red Blood Cell (RBC) Count 4.96 mill/uL (4.70-6.10); White Blood Cell (WBC) Count 8.2 thou/uL (4.8-10.8)
[2017-08-20 05:09] LABS: Anion Gap 13 mmol/L (10-20); BUN (Urea Nitrogen) 11 mg/dL (8.4-25.7); Calc. Creatinine Clearance 139 mL/min (70-130); Calcium 9.3 mg/dL (7.8-10.44); Carbon Dioxide 26 mmol/L (22-29); Cardiac Risk 2.3 (Less than 4.5); Chloride 101 mmol/L (98-107); Cholesterol 82 mg/dl (< 200 Desired); Estimated GFR-MDRD 85; Glucose 172 mg/dL (70-105); HDL Cholesterol 36 mg/dL (>60 Neg Risk); LDL Cholesterol, Calculated 31 mg/dL; Potassium 3.9 mmol/L (3.5-5.1); Sodium 136 mmol/L (136-145); Triglycerides 77 mg/dL (Less than 150)
[2017-08-20 07:51] VITALS: BP 141/70; TEMP 98.4
[2017-08-20] MEDS: hydrALAZINE 25 MG TAB PO SCH (08:47)
[2017-08-20] MEDS: Metoprolol Tartrate 50 MG TAB PO SCH (08:48)
[2017-08-20] MEDS: Famotidine 20 MG TAB PO SCH (08:49)
[2017-08-20] MEDS: cloNIDine 0.1 MG TAB PO SCH (08:49)
[2017-08-20] MEDS ORDERED: Lisinopril 20 MG TAB PO SCH (09:00)
[2017-08-20] MEDS ORDERED: Aspirin 325 mg Enteric Coated Tablet PO SCH (09:00)
[2017-08-20] MEDS ORDERED: metFORMIN 500 MG TAB PO SCH (09:00)
[2017-08-20] MEDS ORDERED: FLU VACC QS2017-18 36 mo. & older 0.5 ML SYRINGE IM ONE (09:00)
[2017-08-20] MEDS ORDERED: Hydrochlorothiazide 25 MG TAB PO SCH (09:00)
--- NOTE | 2017-08-20 14:04 | DIS ---
DATE OF ADMISSION: 08/19/2017 DATE OF DISCHARGE: 08/20/2017 DISCHARGE DIAGNOSES: 1. Hypertension, improved. 2. Diabetes mellitus type 2, stable. 3. Hyperlipidemia. 4. Obesity. CONSULTATIONS: None. PERTINENT LABORATORY DATA AND X-RAY FINDINGS: Creatinine ranged between 1.04-1.09, estimated GFR ran ging between 85-90. Troponin I negative x3, total cholesterol 82, triglycerides 77, HDL 36, LDL 31. CBC within normal limits. Portable chest x-ray dated 08/19/2017 showed no acute cardiopulmonary pro cess. HOSPITAL COURSE: Patient was observed on the telemetry unit after presenting with labile hypertensio n and question of chest pain. The patient was noted with elevated blood pressure and initiated on hy drochlorothiazide in addition to home regimen of lisinopril 40 mg daily, clonidine 0.1 mg t.i.d., met oprolol 50 mg b.i.d., and hydralazine 50 mg t.i.d. The patient was also increased on his hydralazine to 75 mg t.i.d. with overall improvement in blood pressure trend. The patient may need additional t itration of his antihypertensive regimen on an ongoing basis after discharge. Telemetry monitoring s howed sinus mechanism without evidence of acute arrhythmia or dysrhythmia. Overall, patient clinical ly stable throughout the hospital course. The patient was noted with a normal Cardiolite stress test 04/15/2017. The patient overall stable and ready for discharge on 08/20/2017. DISCHARGE MEDICATIONS: 1. Enteric coated aspirin 325 mg 1 tab p.o. daily. 2. Lipitor 40 mg p.o. at bedtime. 3. Clonidine 0.1 mg p.o. t.i.d. 4. Hydralazine 75 mg p.o. t.i.d. 5. Hydrochlorothiazide 25 mg p.o. daily. 6. Lisinopril 40 mg p.o. daily. 7. Metformin 500 mg p.o. daily. 8. Metoprolol tartrate 50 mg p.o. b.i.d. FOLLOWUP: Patient will follow up with Dr. Isidro Metcalf within 7 days of discharge. CONDITION ON DISCHARGE: Stable. ACTIVITY: Ad tip. DIET: Heart healthy and ADA. CODE STATUS: FULL. DISPOSITION: Home 08/20/2017.
== END 2017-08-20 11:04 | disposition home or self-care (01) ==
LOC: ERS 12:15 → 2SW 14:22
PROVIDERS: ADMIT Family Medicine; ATTEND Family Medicine
DX: I10 Essential (primary) hypertension (principal); R07.89 Other chest pain; E11.9 Type 2 diabetes mellitus without complications; E78.5 Hyperlipidemia, unspecified; J45.909 Unspecified asthma, uncomplicated; E66.9 Obesity, unspecified; Z88.0 Allergy status to penicillin; Z79.84 Long term (current) use of oral hypoglycemic drugs; Z79.899 Other long term (current) drug therapy; Z98.890 Other specified postprocedural states; Z83.3 Family history of diabetes mellitus
CPT/HCPCS: 36415; 36416; 71045; 80048; 80053; 80061; 82550; 82553; 83690; 83880; 84484; 85007; 85025; 85027; 90471; 90682; 93005; 94760; 96374; 96376; A4216; G0008; G0378; J2405; Q2036

== ENCOUNTER 2017-11-30 14:53 | Emergency (ER) | payer SELFPAY ==
[2017-11-30 15:29] LABS: #Basophils 0.1 thou/uL (0.0-0.2); #Eosinphils 0.3 thou/uL (0.0-0.7); #Lymphocytes 3.2 thou/uL (1.20-3.40); #Monocytes 0.5 thou/uL (0.11-0.59); %Eosinophils 3.3 % (0.0-10.0); %Lymphocytes 39.4 % (21.0-51.0); %Monocytes 6.1 % (0.0-10.0); %Neutrophils 50.3 % (42.0-75.0); Hemoglobin 14.6 g/dL (14.0-18.0); Mean Corpuscular HGB CONC 35.1 g/dL (32.0-36.0); Mean Corpuscular Hemoglobin 31.1 pg (27.0-31.0); Mean Corpuscular Volume 88.6 fl (80.0-94.0); Platelet Count 243 thou/uL (130-400); RBC Distribution Width 12.2 % (11.5-14.5); Red Blood Cell (RBC) Count 4.68 mill/uL (4.70-6.10)
[2017-11-30] MEDS ORDERED: Mag-Al 1200 mg/1200 mg/30 ML UDCUP ONE (15:36)
[2017-11-30] MEDS ORDERED: Lidocaine Viscous Sol 2% 15 ml UD Cup ONE (15:36)
[2017-11-30] MEDS ORDERED: Ondansetron ODT 4 MG TAB ONE (15:36)
[2017-11-30 15:50] LABS: ALT (SGPT) 34 U/L (8-55); AST (SGOT) 24 U/L (5-34); Albumin 4.2 g/dL (3.5-5.0); Alkaline Phosphatase 79 U/L (40-150); Anion Gap 15 mmol/L (10-20); BUN (Urea Nitrogen) 13 mg/dL (8.4-25.7); Bilirubin, Total 0.7 mg/dL (0.2-1.2); Calc. Creatinine Clearance 0 mL/min (70-130); Calcium 9.2 mg/dL (7.8-10.44); Carbon Dioxide 22 mmol/L (22-29); Chloride 104 mmol/L (98-107); Estimated GFR-MDRD 74; Globulin 3.3 g/dL (2.4-3.5); Glucose 195 mg/dL (70-105); Potassium 4.1 mmol/L (3.5-5.1); Protein, Total 7.5 g/dL (6.0-8.3); Sodium 137 mmol/L (136-145)
[2017-11-30 15:54] LABS: CKMB 1.7 ng/mL (0-6.6); Troponin I Less than 0.010 ng/mL (< 0.028)
--- NOTE | 2017-11-30 17:18 | RAD ---
AP CHEST: Indication: Chest pain. IMPRESSION: No acute cardiopulmonary abnormality. The examination does not appear appreciably changed from compar gopal dated 08-19-17. POS: [facility]
== END 2017-11-30 18:42 | disposition home or self-care (01) ==
LOC: ERS 14:53
DX: I10 Essential (primary) hypertension (principal); R07.89 Other chest pain; E11.9 Type 2 diabetes mellitus without complications; E78.5 Hyperlipidemia, unspecified; J45.909 Unspecified asthma, uncomplicated; Z87.891 Personal history of nicotine dependence; Z79.82 Long term (current) use of aspirin; Z79.899 Other long term (current) drug therapy
CPT/HCPCS: 36415; 71045; 80053; 82553; 84484; 85025; 93005; Q0162

== ENCOUNTER 2019-06-19 19:00 | Emergency (ER) | payer OTHER, SELFPAY ==
[2019-06-19] MEDS ORDERED: Adacel (T-DAP) 0.5 ML SYRINGE ONE (20:38)
== END 2019-06-19 20:46 | disposition home or self-care (01) ==
LOC: ERS 19:00
DX: S50.862A Insect bite (nonvenomous) of left forearm, initial encounter (principal); I10 Essential (primary) hypertension; E11.9 Type 2 diabetes mellitus without complications; E78.5 Hyperlipidemia, unspecified; E78.00 Pure hypercholesterolemia, unspecified; Z87.891 Personal history of nicotine dependence; W57.XXXA Bitten or stung by nonvenomous insect and other nonvenomous arthropods, initial encounter
CPT/HCPCS: 90471; 90715

== ENCOUNTER 2020-06-09 16:10 | Emergency (ER) | payer OTHER ==
[2020-06-10 05:05] LABS: SARS-CoV-2 MS2 Positive; SARS-CoV-2 N Gene Positive; SARS-CoV-2 S Gene Positive; SARS-CoV-2 by NAA DETECTED (NotDetected); SARS-CoV-2 orf1ab Positive
== END 2020-06-09 17:10 | disposition home or self-care (01) ==
LOC: ERS 16:10
DX: U07.1 COVID-19 (principal); R11.2 Nausea with vomiting, unspecified; E78.5 Hyperlipidemia, unspecified; E78.00 Pure hypercholesterolemia, unspecified; I10 Essential (primary) hypertension; E11.9 Type 2 diabetes mellitus without complications; Z87.891 Personal history of nicotine dependence
CPT/HCPCS: 87635; 99284; U0003

== ENCOUNTER 2020-06-11 15:55 | Emergency (ER) | payer OTHER, SELFPAY ==
[2020-06-11 18:38] LABS: Bacteria/HPF None Seen HPF (None Seen); Bilirubin Negative (Negative); Blood, Urine Negative (Negative); Clarity Clear (Clear); Glucose, Urine (Dipstick) Normal (Negative); Ketone, Urine Negative (Negative); Leukocyte Negative Leu/uL (Negative); Mucous/LPF 1+ LPF (<2+); Nitrite Negative (Negative); Protein, Urine (Dipstick) 30 mg/dL (Neg-Trace); RBC/HPF 0-3 HPF (0-3); Specific Gravity, Urine 1.033 (1.002-1.036); Squamous Epithelial None Seen HPF (0-3); WBC/HPF 0-3 HPF (0-3); pH, Urine 5.5 (5.0-9.0)
== END 2020-06-11 18:39 | disposition home or self-care (01) ==
LOC: ERS 15:55
DX: U07.1 COVID-19 (principal); E11.9 Type 2 diabetes mellitus without complications; E78.5 Hyperlipidemia, unspecified; E78.00 Pure hypercholesterolemia, unspecified; I10 Essential (primary) hypertension; J45.909 Unspecified asthma, uncomplicated; Z79.899 Other long term (current) drug therapy
CPT/HCPCS: 81003; 81015; 99283

== ENCOUNTER 2020-06-15 09:31 | Emergency (ER) | payer SELFPAY ==
--- NOTE | 2020-06-15 10:48 | RAD ---
Chest one view HISTORY: Dyspnea. COMPARISON: 11/30/2017. FINDINGS: Cardiac silhouette is magnified by projection. Pulmonary vasculature is unremarkable. Mediastinum is midline. No lobar consolidation or evidence of pneumothorax. IMPRESSION : No abnormalities are demonstrated.
[2020-06-15] MEDS ORDERED: Dexamethasone 10 MG/ML VIAL ONE (11:09)
== END 2020-06-15 11:20 | disposition home or self-care (01) ==
LOC: ERS 09:31
DX: U07.1 COVID-19 (principal); E11.9 Type 2 diabetes mellitus without complications; E78.00 Pure hypercholesterolemia, unspecified; I10 Essential (primary) hypertension; Z79.899 Other long term (current) drug therapy
CPT/HCPCS: 71045; J1100

== ENCOUNTER 2020-06-17 05:47 | Emergency (ER) | payer SELFPAY ==
[2020-06-17] MEDS ORDERED: Ibuprofen 800 MG TAB ONE (06:15)
--- NOTE | 2020-06-17 07:55 | RAD ---
PORTABLE CHEST: HISTORY: COVID. Shortness of breath. COMPARISON: 06/15/2020. FINDINGS: No consolidation or confluent infiltrates. Probable hazy ground-glass COVID-type infiltrate seen in the periphery of both lungs. Upper lung zones are clear. Heart and mediastinum unremarkable. IMPRESSION: Suspect hazy ground-glass infiltrates in the lower lung stone. POS: [facility]
== END 2020-06-17 07:06 | disposition home or self-care (01) ==
LOC: ERS 05:47
DX: U07.1 COVID-19 (principal); R07.9 Chest pain, unspecified; E11.9 Type 2 diabetes mellitus without complications; E78.00 Pure hypercholesterolemia, unspecified; J45.909 Unspecified asthma, uncomplicated; I10 Essential (primary) hypertension; Z79.899 Other long term (current) drug therapy
CPT/HCPCS: 71045; 93005

== ENCOUNTER 2020-06-21 00:25 | Emergency (ER) | payer SELFPAY | END 2020-06-21 01:00 | disposition home or self-care (01) | LOC: ERS 00:25 | DX: U07.1 COVID-19 (principal); E11.9 Type 2 diabetes mellitus without complications; E78.00 Pure hypercholesterolemia, unspecified; I10 Essential (primary) hypertension; J45.909 Unspecified asthma, uncomplicated | CPT/HCPCS: 99281 ==

== ENCOUNTER 2020-06-24 09:29 | Emergency (ER) | payer SELFPAY ==
[2020-06-24 12:52] LABS: SARS-CoV-2 MS2 Positive; SARS-CoV-2 N Gene Positive; SARS-CoV-2 S Gene Positive; SARS-CoV-2 by NAA DETECTED (NotDetected); SARS-CoV-2 orf1ab Positive
== END 2020-06-24 09:49 | disposition home or self-care (01) ==
LOC: ERS 09:29
DX: U07.1 COVID-19 (principal); E11.9 Type 2 diabetes mellitus without complications; E78.00 Pure hypercholesterolemia, unspecified; I10 Essential (primary) hypertension
CPT/HCPCS: 87635; 99283; U0003

== ENCOUNTER 2020-08-10 15:01 | Emergency (ER) | payer OTHER, SELFPAY ==
[2020-08-10] MEDS ORDERED: Labetalol HCl 100 MG/20 ML VIAL ONE ×2 (15:51→15:54)
[2020-08-10] MEDS ORDERED: Ketorolac Tromethamine 30 MG/ML VIAL ONE (15:51)
[2020-08-10 15:55] LABS: #Basophils 0.1 thou/uL (0.0-0.2); #Eosinphils 0.3 thou/uL (0.0-0.7); #Monocytes 0.5 thou/uL (0.11-0.59); #Neutrophils 3.5 thou/uL (1.40-6.50); %Basophils 0.9 % (0.0-1.0); %Eosinophils 3.5 % (0.0-10.0); %Lymphocytes 41.4 % (21.0-51.0); %Monocytes 6.1 % (0.0-10.0); %Neutrophils 48.1 % (42.0-75.0); Hemoglobin 13.4 g/dL (14.0-18.0); Mean Corpuscular HGB CONC 33.2 g/dL (32.0-36.0); Mean Corpuscular Volume 90.1 fL (78.0-98.0); Mean Platelet Volume 8.6 fL (7.4-10.4); Platelet Count 198 thou/uL (130-400); RBC Distribution Width 12.9 % (11.5-14.5); Red Blood Cell (RBC) Count 4.47 mill/uL (4.70-6.10); White Blood Cell (WBC) Count 7.4 thou/uL (4.8-10.8)
[2020-08-10 16:09] LABS: ALT (SGPT) 22 U/L (8-55); AST (SGOT) 22 U/L (5-34); Albumin 3.9 g/dL (3.5-5.0); Alkaline Phosphatase 76 U/L (40-110); Anion Gap 16 mmol/L (10-20); BUN (Urea Nitrogen) 12 mg/dL (8.4-25.7); Bilirubin, Total 0.6 mg/dL (0.2-1.2); Calc. Creatinine Clearance 0 mL/min (70-130); Calcium 8.7 mg/dL (7.8-10.44); Carbon Dioxide 22 mmol/L (22-29); Chloride 105 mmol/L (98-107); Globulin 3.3 g/dL (2.4-3.5); Glucose 232 mg/dL (70-105); Potassium 4.2 mmol/L (3.5-5.1); Protein, Total 7.2 g/dL (6.0-8.3); Sodium 139 mmol/L (136-145)
--- NOTE | 2020-08-10 16:53 | ULT ---
EXAM: US Soft Tissue Other PROVIDED CLINICAL HISTORY: Palpable abnormality left bicep region. Pain. COMPARISON: None FINDINGS: Limited sonographic evaluation in the region of patient's palpable abnormality left arm at the level of the biceps muscle was performed. No cystic or solid lesion is seen to correspond to palpable abnormality. No subcutaneous edema is identified. IMPRESSION: No sonographic abnormality is seen in region of the patient's palpable abnormality left upper arm. No mass or cystic lesion is identified.
--- NOTE | 2020-08-31 16:40 | EKG ---
Blood Pressure : / mmHG Vent. Rate : 071 BPM Atrial Rate : 071 BPM P-R Int : 180 ms QRS Dur : 100 ms QT Int : 414 ms P-R-T Axes : 037 002 123 degrees QTc Int : 449 ms Normal sinus rhythm with sinus arrhythmia T wave abnormality, consider lateral ischemia Abnormal ECG Confirmed by WING GRAY, CHACHO Rayo ([id number]), graphic editor ALEXIA OSULLIVAN ([id number]) on 08/31/2020 4:40:35 PM Referred By: Confirmed By:CHACHO DIMAS MD
== END 2020-08-10 18:20 | disposition home or self-care (01) ==
LOC: ERS 15:01
DX: M54.12 Radiculopathy, cervical region (principal); D17.22 Benign lipomatous neoplasm of skin and subcutaneous tissue of left arm; E11.9 Type 2 diabetes mellitus without complications; I10 Essential (primary) hypertension; Z79.84 Long term (current) use of oral hypoglycemic drugs; Z79.82 Long term (current) use of aspirin
CPT/HCPCS: 76999; 80053; 84484; 85025; 93005; 96374; 96375; J1885

== ENCOUNTER 2020-08-30 08:03 | Emergency (ER) | payer OTHER ==
[2020-08-30 08:38] LABS: #Basophils 0.1 thou/uL (0.0-0.2); #Eosinphils 0.2 thou/uL (0.0-0.7); #Lymphocytes 3.7 thou/uL (1.20-3.40); #Monocytes 0.6 thou/uL (0.11-0.59); #Neutrophils 4.6 thou/uL (1.40-6.50); %Basophils 0.6 % (0.0-1.0); %Eosinophils 2.6 % (0.0-10.0); %Monocytes 6.4 % (0.0-10.0); %Neutrophils 50.5 % (42.0-75.0); Hemoglobin 14.4 g/dL (14.0-18.0); Mean Corpuscular HGB CONC 32.4 g/dL (32.0-36.0); Mean Corpuscular Hemoglobin 28.9 pg (27.0-31.0); Mean Corpuscular Volume 89.1 fL (78.0-98.0); Mean Platelet Volume 8.7 fL (7.4-10.4); Platelet Count 186 thou/uL (130-400); RBC Distribution Width 12.9 % (11.5-14.5); White Blood Cell (WBC) Count 9.2 thou/uL (4.8-10.8)
[2020-08-30] MEDS ORDERED: Pantoprazole 40 MG VIAL ONE (08:38)
[2020-08-30] MEDS ORDERED: Ondansetron PF 4 MG/2 ML Vial ONE (08:38)
[2020-08-30 09:13] LABS: Bacteria/HPF None Seen HPF (None Seen); Bilirubin Negative (Negative); Blood, Urine Negative (Negative); Clarity Clear (Clear); Glucose, Urine (Dipstick) Normal (Negative); Ketone, Urine Trace mg/dL (Negative); Leukocyte Negative Leu/uL (Negative); Nitrite Negative (Negative); Protein, Urine (Dipstick) 30 mg/dL (Neg-Trace); RBC/HPF 0-3 HPF (0-3); Specific Gravity, Urine 1.044 (1.002-1.036); Squamous Epithelial 0-3 HPF (0-3); Urobilinogen 3 mg/dL (Less than 2); WBC/HPF 0-3 HPF (0-3); pH, Urine 5.5 (5.0-9.0)
[2020-08-30 09:25] LABS: ALT (SGPT) 39 U/L (8-55); AST (SGOT) 30 U/L (5-34); Albumin 4.2 g/dL (3.5-5.0); Alkaline Phosphatase 84 U/L (40-110); Anion Gap 17 mmol/L (10-20); BUN (Urea Nitrogen) 11 mg/dL (8.4-25.7); Bilirubin, Total 0.7 mg/dL (0.2-1.2); Calc. Creatinine Clearance 0 mL/min (70-130); Calcium 8.9 mg/dL (7.8-10.44); Carbon Dioxide 21 mmol/L (22-29); Chloride 105 mmol/L (98-107); Globulin 3.7 g/dL (2.4-3.5); Glucose 146 mg/dL (70-105); Lipase 49 U/L (8-78); Protein, Total 7.9 g/dL (6.0-8.3); Sodium 139 mmol/L (136-145)
[2020-08-30 18:54] LABS: SARS-CoV-2 PCR by NAA Not Detected (NotDetected)
== END 2020-08-30 11:20 | disposition home or self-care (01) ==
LOC: ERS 08:03
DX: R10.13 Epigastric pain (principal); I10 Essential (primary) hypertension; E11.9 Type 2 diabetes mellitus without complications; J45.909 Unspecified asthma, uncomplicated; Z79.899 Other long term (current) drug therapy
CPT/HCPCS: 36415; 80053; 81003; 81015; 83690; 84484; 85025; 87635; 93005; 96374; 96375; C9113; J2405; U0003; U0005

== ENCOUNTER → 2020-09-28 | Emergency (ER) | payer OTHER | LOC: ERS 03:32 | DX: Z03.89 Encounter for observation for other suspected diseases and conditions ruled out (principal); E11.9 Type 2 diabetes mellitus without complications; I10 Essential (primary) hypertension | CPT/HCPCS: 99281 ==

== ENCOUNTER 2021-12-20 15:05 | Inpatient (IN) | payer OTHER ==
[2021-12-20] MEDS ORDERED: Famotidine/PF 20 mg/2ml Vial ONE (15:15)
[2021-12-20] MEDS ORDERED: EPINEPHrine 1 MG/ML VIAL ONE (15:15)
[2021-12-20] MEDS ORDERED: diphenhydrAMINE 50 MG/ML VIAL ONE (15:15)
[2021-12-20] MEDS ORDERED: methylPREDNISolone Sod Succ/PF 125 MG/2 ML VIAL ONE (15:15)
[2021-12-20] MEDS ORDERED: Lidocaine Viscous Sol 2% 15 ml UD Cup ONE (15:15)
[2021-12-20] MEDS ORDERED: Lidocaine 4% Topical Sol 50 ML BOT ONE (15:15)
[2021-12-20 15:32] LABS: #Basophils 0.1 thou/uL (0.0-0.2); #Eosinphils 0.6 thou/uL (0.0-0.7); #Lymphocytes 3.4 thou/uL (1.20-3.40); #Monocytes 0.5 thou/uL (0.11-0.59); #Neutrophils 5.5 thou/uL (1.40-6.50); %Basophils 0.6 % (0.0-1.0); %Eosinophils 5.9 % (0.0-10.0); %Monocytes 4.7 % (0.0-10.0); %Neutrophils 54.9 % (42.0-75.0); Hemoglobin 13.3 g/dL (14.0-18.0); Mean Corpuscular HGB CONC 32.8 g/dL (32.0-36.0); Mean Corpuscular Hemoglobin 29.5 pg (27.0-31.0); Mean Corpuscular Volume 89.9 fL (78.0-98.0); Mean Platelet Volume 7.3 fL (7.4-10.4); Platelet Count 268 thou/uL (130-400); RBC Distribution Width 12.7 % (11.5-14.5)
[2021-12-20 15:56] LABS: ALT (SGPT) 23 U/L (8-55); AST (SGOT) 24 U/L (5-34); Albumin 3.7 g/dL (3.5-5.0); Alkaline Phosphatase 114 U/L (40-110); Anion Gap 12 mmol/L (10-20); BUN (Urea Nitrogen) 11 mg/dL (8.4-25.7); Bilirubin, Total 0.5 mg/dL (0.2-1.2); Calc. Creatinine Clearance 0 mL/min (70-130); Carbon Dioxide 24 mmol/L (22-29); Chloride 102 mmol/L (98-107); Glucose 415 mg/dL (70-105); Potassium 4.4 mmol/L (3.5-5.1); Protein, Total 7.7 g/dL (6.0-8.3); Sodium 134 mmol/L (136-145)
[2021-12-20] MEDS ORDERED: Insulin Regular 300 UNITS/3 ML VIAL ONE (16:13)
[2021-12-20 18:43] VITALS: BMI 41.8
[2021-12-20] MEDS ORDERED: Ondansetron PF 4 MG/2 ML Vial IVP PRN (18:51)
[2021-12-20] MEDS ORDERED: Acetaminophen 325 MG TAB PO PRN (18:51)
[2021-12-20] MEDS ORDERED: Calcium Carbonate 500 MG ChewTAB PO PRN (18:51)
[2021-12-20] MEDS ORDERED: Senokot S 8.6-50 MG TAB PO PRN (18:51)
[2021-12-20] MEDS ORDERED: Ondansetron ODT 4 MG TAB PO PRN (18:51)
[2021-12-20] MEDS ORDERED: Dextrose 50% Abboject 50 ML SYRINGE SLOW IVP PRN (18:54)
[2021-12-20] MEDS ORDERED: Insulin Regular 300 UNITS/3 ML VIAL SC PRN (18:54)
[2021-12-20] MEDS ORDERED: Dextrose 5% in Water 1,000 ML IV PRN (18:54)
[2021-12-20] MEDS ORDERED: Electrolyte Replacement Protocol 1 EACH FS SCH (19:00)
[2021-12-20] MEDS: hydrALAZINE 25 MG TAB PO SCH (20:58)
[2021-12-20] MEDS: Metoprolol Tartrate 50 MG TAB PO SCH (20:59)
[2021-12-20] MEDS: diphenhydrAMINE 50 MG/ML VIAL IVP SCH (20:59)
[2021-12-20] MEDS: cloNIDine 0.2 MG TAB PO SCH (20:59)
[2021-12-20] MEDS ORDERED: Famotidine/PF 20 mg/2ml Vial SLOW IVP SCH (21:00)
[2021-12-20] MEDS ORDERED: Famotidine 20 MG TAB PO SCH (21:00)
[2021-12-20] MEDS ORDERED: Insulin Glargine 30 UNITS/0.3 ML VIAL SC SCH (21:00)
[2021-12-20] MEDS ORDERED: methylPREDNISolone Sod Succ 40 MG VIAL IVP SCH (21:00)
[2021-12-21 03:59] LABS: #Basophils 0.1 thou/uL (0.0-0.2); #Lymphocytes 1.4 thou/uL (1.20-3.40); #Monocytes 0.1 thou/uL (0.11-0.59); #Neutrophils 11.6 thou/uL (1.40-6.50); %Basophils 0.4 % (0.0-1.0); %Eosinophils 0.2 % (0.0-10.0); %Lymphocytes 10.4 % (21.0-51.0); %Monocytes 1.1 % (0.0-10.0); %Neutrophils 87.9 % (42.0-75.0); Hemoglobin 13.7 g/dL (14.0-18.0); Mean Corpuscular HGB CONC 33.5 g/dL (32.0-36.0); Mean Corpuscular Volume 89.6 fL (78.0-98.0); Mean Platelet Volume 7.2 fL (7.4-10.4); Platelet Count 258 thou/uL (130-400); RBC Distribution Width 12.5 % (11.5-14.5); Red Blood Cell (RBC) Count 4.57 mill/uL (4.70-6.10); White Blood Cell (WBC) Count 13.1 thou/uL (4.8-10.8)
[2021-12-21 04:25] LABS: Anion Gap 13 mmol/L (10-20); BUN (Urea Nitrogen) 13 mg/dL (8.4-25.7); Calc. Creatinine Clearance 130 mL/min (70-130); Carbon Dioxide 24 mmol/L (22-29); Chloride 100 mmol/L (98-107); Glucose 386 mg/dL (70-105); Potassium 4.3 mmol/L (3.5-5.1); Sodium 133 mmol/L (136-145)
[2021-12-21] MEDS: Insulin Regular 300 UNITS/3 ML VIAL SC PRN ×2 (05:45→11:40)
[2021-12-21] MEDS: diphenhydrAMINE 50 MG/ML VIAL IVP SCH (05:45)
[2021-12-21] MEDS: cloNIDine 0.2 MG TAB PO SCH ×2 (05:45→14:08)
[2021-12-21 05:46] VITALS: BP 117/47
[2021-12-21] MEDS ORDERED: Magnesium 2 GM/50 ML(in water) 2 GM in Premix Bag 1 BAG IVPB SCH (08:00)
[2021-12-21] MEDS: hydrALAZINE 25 MG TAB PO SCH ×2 (08:09→14:08)
[2021-12-21] MEDS: Metoprolol Tartrate 50 MG TAB PO SCH (08:09)
[2021-12-21 08:33] VITALS: TEMP 98.3
[2021-12-21] MEDS ORDERED: Montelukast Sodium 10 mg Tablet PO SCH (09:00)
[2021-12-21] MEDS ORDERED: Insulin Glargine 30 UNITS/0.3 ML VIAL SC SCH (09:00)
[2021-12-21] MEDS ORDERED: Aspirin 325 mg Enteric Coated Tablet PO SCH (09:00)
[2021-12-21] MEDS ORDERED: Atorvastatin Calcium 40 MG TAB PO SCH (21:00)
== END 2021-12-21 15:40 | disposition home or self-care (01) | DRG 916 ==
LOC: ERS 15:05 → CCU 17:07 → OBSVTOIN 18:33
PROVIDERS: ADMIT Family Medicine; ATTEND Internal Medicine
DX: T78.3XXA Angioneurotic edema, initial encounter (principal); Z68.41 Body mass index [BMI] 40.0-44.9, adult; E78.5 Hyperlipidemia, unspecified; E11.65 Type 2 diabetes mellitus with hyperglycemia; I10 Essential (primary) hypertension; T46.4X5A Adverse effect of angiotensin-converting-enzyme inhibitors, initial encounter; D72.829 Elevated white blood cell count, unspecified; E66.01 Morbid (severe) obesity due to excess calories; Z88.0 Allergy status to penicillin; Z79.4 Long term (current) use of insulin; Z79.82 Long term (current) use of aspirin; Z79.84 Long term (current) use of oral hypoglycemic drugs; Z79.899 Other long term (current) drug therapy; Z88.8 Allergy status to other drugs, medicaments and biological substances
CPT/HCPCS: 36415; 36416; 80048; 80053; 83735; 85025; 96372; 96374; 96375; G0378; J0171; J1200; J1815; J2920; J2930; J3475; S0028

== ENCOUNTER 2022-08-16 03:09 | Emergency (ER) | payer OTHER ==
[2022-08-16] MEDS ORDERED: Amlodipine 5 MG TAB ONE (06:10)
[2022-08-16] MEDS ORDERED: Acetaminophen 500 MG TAB ONE (06:10)
== END 2022-08-16 07:18 | disposition home or self-care (01) ==
LOC: ERS 03:09
DX: I10 Essential (primary) hypertension (principal); R51.9 Headache, unspecified; E11.9 Type 2 diabetes mellitus without complications; Z79.82 Long term (current) use of aspirin; Z79.4 Long term (current) use of insulin; Z79.899 Other long term (current) drug therapy
CPT/HCPCS: 70450